=== PATIENT | female | born 1995 | race Caucasian/White ===

== ENCOUNTER 2021-01-30 18:09 | Outpatient (REF) | payer OTHER, SELFPAY | END 2021-01-30 18:10 | disposition home or self-care (01) | LOC: LBN 18:09 | PROVIDERS: Visit Provider Nurse Practitioner Family | DX: N39.0 Urinary tract infection, site not specified (principal) | CPT/HCPCS: 87077; 87086; 87186 ==

== ENCOUNTER 2022-09-11 11:49 | Outpatient (REF) | payer OTHER, SELFPAY ==
--- NOTE | 2022-09-11 08:20 | PAPFT_PTH ---
PATIENT: Junior Agee LOC: [facility] U#:[id number] AGE/SX: 26/F ROOM: RE09/11/[address]: Stephanie Robison : 1995 BED: DIS: 09/11/2022 SPEC #: [id number] RECD: 09/11/22 17:47 STATUS: JIMMY RERomie #: [id number] RACHEAL: 09/11/22 08:[address]: Stephanie Robison DEPT: [facility] Cytology RECD BY: Yessica Lan Tissues: 1 - CX/ENDOCX FOR PAP SMEARS Procedures: PAP THIN PREP/UVM Screening Comments: [id number] (CHLAMYDIA/GC)
[2022-09-11 15:25] LABS: HGB 13.9 g/dL (11.2-15.7); MCH 30.2 pg (27.0-33.0); MCHC 33.1 % (32.0-36.0); MCV 91 fL (80-95); MPV 10.4 fL (8.0-11.0); Platelet Count 248 10^3/uL (130-400); RBC 4.61 10^6/uL (3.93-5.22); RDW 11.4 % (11.7-14.6); RDW-SD 38.2 fL; WBC 5.21 10^3/uL (4.4-10.8)
[2022-09-11 16:02] LABS: Anion Gap 5.6 mmol/L (3-11); BUN 14 mg/dL (7-18); CO2 28.4 mmol/L (21.0-32.0); CREATININE 0.9 mg/dL (0.55-1.02); Calcium 9.3 mg/dL (8.5-10.1); Chloride 105 mmol/L (98-107); Glucose 93 mg/dL (74-106); Potassium 4.6 mmol/L (3.5-5.1); Sodium 139 mmol/L (136-145); TSH (W/Ref FT4) 1.83 uIU/mL (0.36-3.74)
[2022-09-14 14:44] LABS: Chlamydia Result Negative (Negative); GC Result Negative (Negative)
== END 2022-09-11 11:50 | disposition home or self-care (01) ==
LOC: NCHCN 11:49
PROVIDERS: PCP Family Medicine; Visit Provider Family Medicine
DX: Z13.29 Encounter for screening for other suspected endocrine disorder (principal); Z13.228 Encounter for screening for other metabolic disorders; Z12.4 Encounter for screening for malignant neoplasm of cervix; Z11.3 Encounter for screening for infections with a predominantly sexual mode of transmission
CPT/HCPCS: 80048; 85027; 87491; 87591; 88142; 84443

== ENCOUNTER 2022-10-30 18:13 | Outpatient (REF) | payer OTHER, SELFPAY ==
[2022-10-30 14:49] LABS: Abs Immature Grans 0.02 10^3/uL (0.0-0.06); Absolute Basophil Count 0.06 10^3/uL (0.0-0.2); Absolute Eosinophil Count 0.19 10^3/uL (0.0-0.7); Absolute Lymphocyte Count 1.66 10^3/uL (1.2-3.4); Absolute Monocyte Count 0.39 10^3/uL (0.1-0.8); Absolute Neutrophil Count 3.15 10^3/uL (1.2-6.7); Basophils % 1.1; Eosinophils % 3.5; HCT 43.3 % (36.0-46.0); HGB 14.2 g/dL (11.2-15.7); Immature Grans % 0.4; Lymphocytes % 30.3; MCHC 32.8 % (32.0-36.0); MCV 91 fL (80-95); MPV 10.2 fL (8.0-11.0); Monocytes % 7.1; Neutrophils % 57.6; Platelet Count 269 10^3/uL (130-400); RBC 4.74 10^6/uL (3.93-5.22); RDW 11.8 % (11.7-14.6); RDW-SD 39.6 fL; WBC 5.47 10^3/uL (4.4-10.8)
[2022-11-02 10:22] LABS: EBNA IgG Positive (Negative); EBV Interpretation (See Note); VCA IgG Positive (Negative); VCA IgM Negative (Negative)
== END 2022-10-30 18:14 | disposition home or self-care (01) ==
LOC: NCHCN 18:13
PROVIDERS: PCP Family Medicine; Visit Provider Family Medicine
DX: J02.9 Acute pharyngitis, unspecified (principal); R53.83 Other fatigue
CPT/HCPCS: 85025; 86664; 86665

== ENCOUNTER 2023-01-12 18:18 | Outpatient (REF) | payer OTHER, SELFPAY ==
[2023-01-13 17:56] LABS: Progesterone 11.3 ng/mL (See Table)
[2023-01-13 18:53] LABS: Prolactin 32.1 ng/mL (See Note)
[2023-01-13 19:01] LABS: LH 11.8 mIU/mL (See Note)
[2023-01-15 09:39] LABS: Antimullerian Hormone 0.64 ng/mL (0.89-9.9)
[2023-01-17 11:53] LABS: Testosterone, Total 26 ng/dL (8-60)
== END 2023-01-12 18:19 | disposition home or self-care (01) ==
LOC: NCHCN 18:18
PROVIDERS: PCP Family Medicine; Visit Provider Family Medicine
DX: Z31.41 Encounter for fertility testing (principal)
CPT/HCPCS: 84403; 83002; 83520; 84144; 84146

== ENCOUNTER 2023-01-20 09:28 | Outpatient (REF) | payer OTHER, SELFPAY ==
[2023-01-21 19:45] LABS: LH 5.4 mIU/mL (See Note); Progesterone 0.3 ng/mL (See Table); Prolactin 11.8 ng/mL (See Note)
[2023-01-23 22:09] LABS: Estradiol 73 pg/mL (See Note)
[2023-01-25 08:59] LABS: FSH 10.3 mIU/mL (See Note)
[2023-01-26 15:44] LABS: Testosterone, Total 33 ng/dL (8-60)
== END 2023-01-20 09:29 | disposition home or self-care (01) ==
LOC: NCHCN 09:28
PROVIDERS: PCP Family Medicine; Visit Provider Family Medicine
DX: Z31.41 Encounter for fertility testing (principal)
CPT/HCPCS: 84403; 82670; 83001; 83002; 83520; 84144; 84146

== ENCOUNTER 2023-03-23 16:03 | Outpatient (REF) | payer OTHER, SELFPAY ==
[2023-03-23 22:25] LABS: Bilirubin Negative (Negative); Blood Trace-intact (Negative); Clarity Clear (Clear); Glucose Negative (Negative); Ketones Negative (Negative); Leukocyte Esterase Small (Negative); Nitrite Positive (Negative); Urobilinogen 0.2 mg/dL (Up to 0.2)
[2023-03-23 22:47] LABS: Bacteria Few HPF (Negative); Crystals Negative HPF (Negative); Epithelial Cells Rare HPF (Negative); RBC 0-2 HPF (0-2)
[2023-03-23 22:48] LABS: C & S Indicated? Yes; Mucus Negative (Negative)
== END 2023-03-23 16:04 | disposition home or self-care (01) ==
LOC: LBN 16:03
PROVIDERS: PCP Family Medicine; Visit Provider Physician Assistant
DX: N39.0 Urinary tract infection, site not specified (principal)
CPT/HCPCS: 81003; 81015; 87086

== ENCOUNTER 2023-05-05 14:07 | Outpatient (CLI) | payer OTHER, SELFPAY ==
[2023-05-05 15:16] LABS: Abs Immature Grans 0.02 10^3/uL (0.0-0.06); Absolute Basophil Count 0.05 10^3/uL (0.0-0.2); Absolute Eosinophil Count 0.27 10^3/uL (0.0-0.7); Absolute Lymphocyte Count 2.15 10^3/uL (1.2-3.4); Absolute Monocyte Count 0.53 10^3/uL (0.1-0.8); Absolute Neutrophil Count 4.14 10^3/uL (1.2-6.7); Basophils % 0.7; Eosinophils % 3.8; HCT 40.4 % (36.0-46.0); HGB 13.5 g/dL (11.2-15.7); Immature Grans % 0.3; MCH 29.8 pg (27.0-33.0); MCHC 33.4 % (32.0-36.0); MCV 89 fL (80-95); MPV 9.9 fL (8.0-11.0); Monocytes % 7.4; Neutrophils % 57.8; Platelet Count 259 10^3/uL (130-400); RBC 4.53 10^6/uL (3.93-5.22); RDW 12.4 % (11.7-14.6); RDW-SD 40.8 fL; WBC 7.16 10^3/uL (4.4-10.8)
[2023-05-05 17:24] LABS: Vitamin D 25 Total 72.3 ng/mL (30-100)
[2023-05-05 22:26] LABS: LH 3.9 mIU/mL (See Note)
[2023-05-05 22:32] LABS: Progesterone 18.5 ng/mL (See Table)
[2023-05-06 09:16] LABS: Hepatitis B Surface Ag Negative (Negative)
[2023-05-06 10:27] LABS: Syphilis Serology (RPR) Negative (Negative)
[2023-05-06 10:31] LABS: Measles IgG Antibody Positive (See Note); Varicella IgG Antibody Positive (See Note)
[2023-05-06 10:32] LABS: Rubella IgG Ab (UVM) Positive (See Note)
[2023-05-06 12:56] LABS: Chlamydia Result Negative (Negative); GC Result Negative (Negative)
== END 2023-05-05 14:08 | disposition home or self-care (01) ==
LOC: LBO 14:07
PROVIDERS: PCP Family Medicine; Visit Provider Obstetrics & Gynecology
DX: Z31.41 Encounter for fertility testing (principal); Z31.69 Encounter for other general counseling and advice on procreation; Z11.59 Encounter for screening for other viral diseases; Z01.84 Encounter for antibody response examination
CPT/HCPCS: 36415; 82306; 86706; 86787; 86803; 86850; 86900; 86901; 87340; 87389; 87491; 87591; 82670; 83001; 83002; 84144; 85025; 86592; 86762; 86765

== ENCOUNTER 2023-05-14 11:50 | Outpatient (CLI) | payer OTHER, SELFPAY ==
[2023-05-14 20:15] LABS: Estradiol 43 pg/mL (See Note)
[2023-05-14 20:34] LABS: FSH 15.5 mIU/mL (See Note)
== END 2023-05-14 11:51 | disposition home or self-care (01) ==
LOC: LBO 11:50
PROVIDERS: PCP Family Medicine; Visit Provider Obstetrics & Gynecology
DX: N83.8 Other noninflammatory disorders of ovary, fallopian tube and broad ligament (principal)
CPT/HCPCS: 36415; 82670; 83001

== ENCOUNTER 2023-06-02 15:28 | Outpatient (REF) | payer OTHER, SELFPAY | END 2023-06-02 15:29 | disposition home or self-care (01) | LOC: NCHCN 15:28 | PROVIDERS: PCP Family Medicine; Visit Provider Family Medicine | DX: R30.0 Dysuria (principal) | CPT/HCPCS: 87086 ==

== ENCOUNTER 2023-07-08 02:32 | Outpatient (CLI) | payer OTHER, SELFPAY ==
[2023-07-15 03:39] LABS: Specimen WB Whole Blood
[2023-07-19 16:03] LABS: Result Summary NEGATIVE; Specimen WB Whole Blood
[2023-07-29 15:40] LABS: Result Summary NEGATIVE; Specimen WB Whole Blood
== END 2023-07-08 02:33 | disposition home or self-care (01) ==
PROVIDERS: PCP Family Medicine; Visit Provider Family Medicine
DX: Z31.41 Encounter for fertility testing (principal)
CPT/HCPCS: 36415; 81220; 81222; 81329; 81243; 83891; 83892; 83894; 83896; 83897; 83898

== ENCOUNTER 2023-07-21 12:32 | Outpatient (REF) | payer OTHER, SELFPAY ==
[2023-07-21 14:38] LABS: Bilirubin Negative (Negative); Blood Negative (Negative); Clarity Clear (Clear); Glucose Negative (Negative); Ketones Negative (Negative); Leukocyte Esterase Trace (Negative); Nitrite Negative (Negative); Specific Gravity <= 1.005 (1.005-1.025); Urobilinogen 0.2 mg/dL (Up to 0.2)
[2023-07-21 14:49] LABS: Bacteria Few HPF (Negative); C & S Indicated? C&S Done As Ordered; Casts Negative LPF (Negative); Crystals Negative HPF (Negative); Epithelial Cells Few HPF (Negative); Mucus Negative (Negative); RBC 0-2 HPF (0-2)
== END 2023-07-21 12:33 | disposition home or self-care (01) ==
LOC: NCHCN 12:32
PROVIDERS: PCP Family Medicine; Visit Provider Family Medicine
DX: Z33.1 Pregnant state, incidental (principal)
CPT/HCPCS: 81003; 81015; 87086

== ENCOUNTER 2023-07-27 03:29 | Outpatient (CLI) | payer OTHER, SELFPAY ==
[2023-07-27 16:01] LABS: Abs Immature Grans 0.05 10^3/uL (0.0-0.06); Absolute Basophil Count 0.04 10^3/uL (0.0-0.2); Absolute Eosinophil Count 0.27 10^3/uL (0.0-0.7); Absolute Lymphocyte Count 2.11 10^3/uL (1.2-3.4); Absolute Monocyte Count 0.75 10^3/uL (0.1-0.8); Absolute Neutrophil Count 7.55 10^3/uL (1.2-6.7); Basophils % 0.4; Eosinophils % 2.5; HCT 37.3 % (36.0-46.0); HGB 12.7 g/dL (11.2-15.7); Immature Grans % 0.5; Lymphocytes % 19.6; MCH 30.2 pg (27.0-33.0); MCV 89 fL (80-95); MPV 9.8 fL (8.0-11.0); Platelet Count 231 10^3/uL (130-400); RDW 11.7 % (11.7-14.6); RDW-SD 37.3 fL; WBC 10.77 10^3/uL (4.4-10.8)
[2023-07-27 16:03] LABS: Bilirubin Negative (Negative); Blood Negative (Negative); Clarity Clear (Clear); Glucose Negative (Negative); Ketones Negative (Negative); Leukocyte Esterase Negative (Negative); Nitrite Negative (Negative); Urobilinogen 0.2 mg/dL (Up to 0.2)
[2023-07-29 10:03] LABS: HIV-1/2 Ag & Ab Screen Negative (Negative)
[2023-07-29 10:15] LABS: Hepatitis C Ab w Rflx HCV PCR Negative (Negative)
== END 2023-07-27 03:30 | disposition home or self-care (01) ==
LOC: LBO 03:30
PROVIDERS: PCP Family Medicine; Visit Provider Family Medicine
DX: Z33.1 Pregnant state, incidental (principal)
CPT/HCPCS: 36415; 86803; 86850; 86900; 86901; 87389; 81003; 85025; 87086

== ENCOUNTER 2023-09-09 03:20 | Outpatient (CLI) | payer OTHER, SELFPAY ==
[2023-09-09 15:04] LABS: Panorama Kit Sent via Fed Ex
== END 2023-09-09 03:21 | disposition home or self-care (01) ==
LOC: LBO 03:20
PROVIDERS: PCP Family Medicine; Visit Provider Advanced Practice Midwife
DX: Z34.91 Encounter for supervision of normal pregnancy, unspecified, first trimester (principal)
CPT/HCPCS: 36415

== ENCOUNTER 2023-09-09 14:59 | Outpatient (REF) | payer OTHER, SELFPAY ==
[2023-09-09 19:00] LABS: *AMPHETAMINES SCREEN URINE Negative (Negative); *BARBITURATES SCREEN URINE Negative (Negative); *BENZODIAZEPINES SCREEN URINE Negative (Negative); Cannabinoids THC Negative (Negative); Cocaine Screen,Urine Negative (Negative); METHADONE URINE SCREEN Negative (Negative); OPIATES URINE SCREEN Negative (Negative)
[2023-09-09 19:01] LABS: Tricyclic Antidepressants Negative (Negative)
[2023-09-16 08:05] LABS: Buprenorphine Negative ng/mL (Cutoff: 5.0); Norbuprenorphine Negative ng/mL (Cutoff: 2.5)
== END 2023-09-09 15:00 | disposition home or self-care (01) ==
LOC: LBN 14:59
PROVIDERS: PCP Family Medicine; Visit Provider Advanced Practice Midwife
DX: Z34.91 Encounter for supervision of normal pregnancy, unspecified, first trimester (principal)
CPT/HCPCS: 80307; 80348; 87086

== ENCOUNTER 2023-11-23 17:04 | Outpatient (REF) | payer OTHER, SELFPAY ==
[2023-11-23 20:30] LABS: Bilirubin Negative (Negative); Blood Trace-lysed (Negative); Clarity Clear (Clear); Glucose Negative (Negative); Ketones Negative (Negative); Leukocyte Esterase Small (Negative); Nitrite Negative (Negative); Urobilinogen 0.2 mg/dL (Up to 0.2)
[2023-11-23 20:36] LABS: Bacteria Few HPF (Negative); C & S Indicated? Yes; Crystals Negative HPF (Negative); Epithelial Cells Rare HPF (Negative); Mucus Negative (Negative); RBC 0-2 HPF (0-2)
== END 2023-11-23 17:05 | disposition home or self-care (01) ==
LOC: LBN 17:04
PROVIDERS: PCP Family Medicine; Visit Provider Nurse Practitioner Family
DX: R35.0 Frequency of micturition (principal); R30.0 Dysuria; N39.0 Urinary tract infection, site not specified; Z33.1 Pregnant state, incidental
CPT/HCPCS: 87077; 81003; 81015; 87086; 87186

== ENCOUNTER 2023-12-04 10:23 | Outpatient (CLI) | payer OTHER, SELFPAY | END 2023-12-04 11:05 | disposition home or self-care (01) | PROVIDERS: PCP Family Medicine; Visit Provider Family Medicine | DX: N39.0 Urinary tract infection, site not specified (principal); B96.29 Other Escherichia coli [E. coli] as the cause of diseases classified elsewhere; R39.89 Other symptoms and signs involving the genitourinary system | CPT/HCPCS: 87077; 87086; 87186 ==

== ENCOUNTER 2024-01-05 18:44 | Outpatient (CLI) | payer OTHER, SELFPAY ==
[2024-01-05 19:23] VITALS: BP 114/64; PULSE 81
[2024-01-05 20:13] VITALS: BP 118/67; PULSE 85
[2024-01-05 20:14] LABS: Abs Immature Grans 0.18 10^3/uL (0.0-0.06); Absolute Eosinophil Count 0.31 10^3/uL (0.0-0.7); Absolute Lymphocyte Count 1.91 10^3/uL (1.2-3.4); Absolute Monocyte Count 0.96 10^3/uL (0.1-0.8); Basophils % 0.6 %; Eosinophils % 2.2 %; HCT 36.4 % (36.0-46.0); HGB 12.1 g/dL (11.2-15.7); Immature Grans % 1.3 %; Lymphocytes % 13.5 %; MCH 31.1 pg (27.0-33.0); MCHC 33.2 % (32.0-36.0); MCV 94 fL (80-95); MPV 10.5 fL (8.0-11.0); Monocytes % 6.8 %; Neutrophils % 75.6 %; Platelet Count 182 10^3/uL (130-400); RBC 3.89 10^6/uL (3.93-5.22); RDW 13.1 % (11.7-14.6); RDW-SD 44.7 fL; WBC 14.15 10^3/uL (4.4-10.8)
[2024-01-05] MEDS: Lactated Ringers 1,000 ML 1000 ML IV (20:15)
[2024-01-05 20:16] LABS: Absolute Basophil Count 0.08 10^3/uL (0.0-0.2)
[2024-01-05 21:12] VITALS: BP 123/63; PULSE 80
[2024-01-05] MEDS: Betamet Acet/Betamet Na Ph Inj. 30 MG/5 ML 12 MG IM (21:25)
[2024-01-05] MEDS: MAGNESIUM SULFATE 4 GM/100 ML BAG 300 GM (21:30)
--- NOTE | 2024-01-05 21:30 | W.PM.OBHPL1 ---
Date of service: 01/05/24 Time of Service: 21:31 OB-HPI Labor/Delivery History of Present Illness Reason for Visit: NST Chief Complaint: Vaginal Bleeding , Associated Signs and Symptoms of Vaginal Bleeding: as in text box. 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 clots, kirit blood/bright red persists - two 50 cc clots here at [facility] - estimate ~250 cc total - Good FMVT, cat 1 NST - mod variability No trauma, falls, recent intercourse, cocaine/meth/nocotine use. PN care - low/pprevia 20 weeks - two successive scans show placenta moved to now 3.0 cm from int os cervix 4.3 cm long on last sono 12/21/2023 O: sterile spec - 50 cc clot at OS/fornix - cervix closed - membranes vs mucous plug noted No abd pain, FH ~30 cm no pedal edema POCUS - transverse vigorous vasquez cardiac activity noted SHASHI ~10 cm post placenta - difficult to assess abnormalities A: painless bleeding - uterine source - likely placental Maternal and wellbeing Given risk for Pre-term labor/delivery [place] [facility] [place] Mag load for neuroprotection Celestone dose given IM P: support with IV fluids, Mag enroute to . Report called, EMTALA forms done CAlex and BC RN to accompany Records copied/faxed to [facility]. [facility] History of Present Expected Delivery Route/Plan - CNM FOB/ - Darian Saldivar (first child) Informed choice to formula feed Specific Issues/Plan 1. Spontaneous conception despite hx POI 2. CF/SMA carrier screen negative, cfDNA low risk x5 PFSH All Active Problems Primary ovarian insufficiency (Acute) (Acute) Delayed menses (Acute) Social History Smoking risk assessment performed?: No History History 1 Para 0 Hx # Term Pregnancies 0 Multiple births 0 Hx # Pregnancies 0 Ectopic pregnancies 0 AB induced 0 Hx Number of Living Children 0 AB spontaneous 0 Meds Allergies and Home Medications Allergies Allergy/AdvReac Type Severity Reaction Status Date / Time No Known Allergies Allergy Verified 11/23/23 16:32 Home Medications Medication Instructions Recorded Confirmed Type cholecalciferol (vitamin D3) 50 50 mcg PO DAILY 02/18/22 09/09/23 History mcg (2,000 unit) capsule prenat.vits,omid,uhw-ylfu-jjwds 1 tab PO DAILY 05/26/22 09/09/23 History Exam Physical Exam Vital signs: Pulse BP 80 123/63 01/05/24 21:12 01/05/24 21:12 Detailed Labor and Delivery Exam Vinson Score: Cervical Points Exam 0 1 2 3 Dilation Closed 1-2cm 3-4 cm 5-6cm Effacement 0-30% 40-50% 60-70% 80% Consistency Firm Medium Soft Station -3 -2 -1,0 +1,+2 Position Posterior Mid Anterior Results Abnormal Lab Findings: Abnormal Labs 01/05/24 20:05 WBC 14.15 H RBC 3.89 L Absolute Neutrophils 10.70 H Absolute Monocytes 0.96 H Risk Assessment Risk for Shoulder Dystocia Historical/Initial OB: NEGATIVE FOR: Pelvic Abnormality, Pre- BMI>30, Previous Shoulder Dystocia or Previous Macrosomia Risk for Pre-Eclampsia Date Initiated/Initials: not indicated JK Yes, if one or more: NEGATIVE FOR: Hx Pre-E/Gest HTN, Chronic HTN, Multiple Gestation, Pre-gestational DM, Renal Disease, Systemic Lupus or APA Syndrome Yes, if 2 or more: POSITIVE FOR: Nulliparity; NEGATIVE FOR: Age>= 35 yrs, >10yr btwn pregnancies, BMI>30, ethinicty, Mother/Sister w/ Pre-E or Previous IUGR Risk for Post- Hemorrhage Initial: NEGATIVE FOR: Multiple Gestation, Previous PPH, Known Clotting Deficiency, Grand Multiparity or Anticoagulation Risks Reviewed Risks Reviewed Upon Admission: Yes
[2024-01-05] MEDS: MAGNESIUM SULFATE 20 GM/500 ML BAG IV (22:08)
--- NOTE | 2024-01-05 22:44 | W.PM.OBDISCH ---
Date of service: 01/05/24 Time of Service: 22:44 DS: Diagnosis Discharge Diagnosis (1) Vaginal bleeding during : Status: Acute Asessment and Plan: transferred to for Vag bleeding, prematurity. Maternal and wellbeing on d/c. Mag IV and celestone IM given. RN accompanying IRENE Murillo Discharge Plan Disposition Patient Disposition: Transfer-Acute Inpatient Care Specific Acute Inpt Facility: [facility] Discharge Details Reason For Visit: NST Attending Provider: Roberto Murillo Primary Care Provider: Stephanie Robison Home Meds and New Rx's Prescriptions: No Action cholecalciferol (vitamin D3) 50 mcg (2,000 unit) capsule 50 mcg PO DAILY prenat.vits,omid,euu-ondd-xdswc Tablet 1 tab PO DAILY Discharge Data Discharge Date/Time-TO BE ENTERED AT DEPARTURE: 01/05/24 22:11 OB:DS Summary Contraception Discussed Contraception Discussed: No, Status at Discharge Functional status at discharge: independent ambulation Overall status at discharge: patient is back to baseline Mental Status: mental status grossly normal Speech and Movement: speech and movement normal Mood: congruent mood Affect: normal affect Quality:SDOH Health Related Social Needs: No Data to Display Exam Physical Exam Vital signs: Pulse BP 80 123/63 01/05/24 21:12 01/05/24 21:12 PFSH All Active Problems (Updated 01/05/24 @ 22:45 by Roberto Murillo) Vaginal bleeding during (Acute) Primary ovarian insufficiency (Acute) (Acute) Delayed menses (Acute) Social History Smoking risk assessment performed?: No History History 1 Para 0 Hx # Term Pregnancies 0 Multiple births 0 Hx # Pregnancies 0 Ectopic pregnancies 0 AB induced 0 Hx Number of Living Children 0 AB spontaneous 0 DS: Data Vitals/I&O Vitals and I&O: Vital Signs Pulse 80 01/05/24 21:12 Blood Pressure 123/63 01/05/24 21:12 Data Completed and Pending Labs on day of discharge: Labs from last 24 hours 01/05/24 20:05 WBC 14.15 H RBC 3.89 L Hgb 12.1 Hct 36.4 MCV 94 MCH 31.1 MCHC 33.2 RDW 13.1 Plt Count 182 MPV 10.5 Immature Gran % 1.3 Neutrophils % 75.6 Lymphocytes % 13.5 Monocytes % 6.8 Eosinophils % 2.2 Basophils % 0.6 Nucleated RBC % 0.0 Absolute Neutrophils 10.70 H Absolute Lymphocytes 1.91 Absolute Monocytes 0.96 H Absolute Eosinophils 0.31 Absolute Basophils 0.08
--- NOTE | 2024-01-06 00:56 | NUR.NOTE ---
Summary note for care delivered while patient on unit and during transfer; 01/05/24 1915 through 01/06/24 8782. Pt presented c/o passing BRB and clots at home, without pain. Had changed peripad downstairs so placed on EFM for NST. Had pt get up to BR [id number] to assess for bleeding. Passed a half dollar sized amount of BRB onto floor when trying to check pad. Dr. Murillo paged. He responded and said he would come into to see pt. I returned to room to see pt and inform her that he would be in. Her peripad was 3/4 saturated with BRB and a small clot, the hat in the toilet had 400 cc of bloody colored urine with a flat softball sized clot in it. Dr Murillo immediately repaged to request an IV and lab work orders. (See orders) Electrical Research Engineer aware of pt status. See Dr. Murillos note and MAR for additional documentation. During transport pt's vitals signs changed slightly in that her pulse increased by 10-15 BPM and her blood pressure decreased systolic by 10mmhg. This was reported to [facility]LA[facility] Anderson upon arrival. FHR remained between 140 and 145 throughout transport. Upon arrival it was 160, unable to ascertain if this was a baseline change or an acceleration. This was also reported to [facility] Anderson.
== END 2024-01-05 22:11 | disposition short-term general hospital (02) ==
LOC: BCD 18:49 → OBS 19:19
PROVIDERS: PCP Family Medicine; Visit Provider Family Medicine
DX: O46.90 Antepartum hemorrhage, unspecified, unspecified trimester (principal); Z3A.29 29 weeks gestation of pregnancy
CPT/HCPCS: 00123; 76856; 76857; 96360; 96361; 59025; 85025; J0702; J3475

== ENCOUNTER 2024-01-14 15:45 | Outpatient (REF) | payer OTHER, SELFPAY ==
[2024-01-15 11:14] LABS: Campylobacter PCR Negative (Negative); Salmonella PCR Negative (Negative); Shiga Toxin PCR Negative (Negative); Shigella/Enteroinvasive Ecoli Negative (Negative)
== END 2024-01-14 15:46 | disposition home or self-care (01) ==
LOC: NCHCN 15:45
PROVIDERS: PCP Family Medicine; Visit Provider Family Medicine
DX: R19.7 Diarrhea, unspecified (principal)
CPT/HCPCS: 87329; 87505

== ENCOUNTER 2024-03-14 00:14 | Emergency (ER) | payer OTHER, SELFPAY ==
[2024-03-14 00:16] VITALS: BP 126/73; PULSE 97; RESP 16; TEMP 36.6; O2SAT 98
--- NOTE | 2024-03-14 00:16 | ED.GENADUL_ITS ---
Discharge Plan Disposition Patient Disposition: Home Condition: Good Discharge Details Clinical Impression: Pyelonephritis of left kidney Primary Care Provider: Stephanie Robison ED Provider: Dany Avilez Meds and New Rx's Prescriptions: New cefpodoxime 200 mg tablet 200 mg PO BID Qty: 14 0RF Rx Instructions: must administer with a meal/food Continued cholecalciferol (vitamin D3) 50 mcg (2,000 unit) capsule 50 mcg PO DAILY prenat.vits,omid,lae-wsfo-iiisf Tablet 1 tab PO DAILY Discharge Instructions Instructions: Urinary Tract Infection, Adult ED Additional Instructions: You were seen for urinary symptoms and left back pain. You do have evidence of UTI on your urinalysis. Given the back pain likely have a kidney infection also called pyelonephritis. You received IV antibiotics here. You will need to take 1 week worth of oral antibiotics with first dose occurring this evening. Stay hydrated. You may use acetaminophen or ibuprofen for discomfort or fever. Follow-up with primary care next week. Return to ED for severe worsening pain, persistent vomiting, spiking fevers, other concerns. HPI General Mode of arrival: ambulatory . Date/Time Provider Initiated Documentation: 03/14/24 00:16 . Limitations to Documentation: no limitations . Information obtained by: patient and RN notes reviewed . HPI Narrative: Patient presents to ED with worsening left-sided flank and back pain. She has had urinary symptoms since Wednesday and has been using Azo and drinking cranberry juice. Tonight she has developed low back and flank pain and continues to have dysuria, pressure. She denies any fever. She denies any nausea vomiting. She has had UTIs in the past typically not causing back or flank pain. Describes the pain as a dull ache and discomfort. There is no sharp stabbing pain. She has no history of kidney stones. Denies , had emergency back in December. Related Data Home Medications ?Medication ?Instructions ?Recorded ?Confirmed cholecalciferol (vitamin D3) 50 50 mcg PO DAILY 02/18/22 03/14/24 mcg (2,000 unit) capsule prenat.vits,omid,jti-evbi-sqvsd 1 tab PO DAILY 05/26/22 03/14/24 cefpodoxime 200 mg tablet 200 mg PO BID #14 tabs 03/14/24 Previous Rx's ?Medication ?Instructions ?Recorded cefpodoxime 200 mg tablet 200 mg PO BID #14 tabs 03/14/24 Allergies Allergy/AdvReac Type Severity Reaction Status Date / Time No Known Allergies Allergy Verified 03/14/24 00:23 Review of Systems Narrative: Per HPI Exam Narrative Exam Narrative: Const: WDWN female in NAD. VS per triage. HEENT: NC/AT. Normal facial exam. Neck: Supple. Trachea midline. Lungs: Normal respiratory effort. GI: Soft/ND/NT. Back: No CVAT. Neuro: A+O x 3. Normal speech, mentation, gait. Cranial nerves II - XII grossly intact. No gross motor or sensory deficit. Ext: No C/C/E. Medical Decision Making Patient presenting to ED with urinary symptoms and now left-sided back and flank pain. Describes it as a dull ache. She has not significantly uncomfortable, denies any sharp stabbing pain, denies any previous history of kidney stones. Abdomen is benign. She has no CVAT. She looks well otherwise. Will place IV and check CBC, BMP. Will obtain urinalysis and urine test. Will give fluids, ketorolac, dose of IV antibiotic assuming urine does appear infected. 01:00 - Patient's urine test is negative. Urinalysis consistent with infection, no hematuria. Kidney function is normal. White count is mildly elevated. Will treat as pyelonephritis/complicated UTI. She is given a dose of IV ceftriaxone here. Will be discharged home on cefpodoxime. Follow-up with primary care next week. Return precautions provided. Lab Data Lab results reviewed: Yes I reviewed the patient's lab results. Lab results narrative: see [facility] All Active Problems (Updated 03/14/24 @ 01:00 by Dany Avilez MD) Pyelonephritis of left kidney (Acute) Primary ovarian insufficiency (Acute) Medical History No significant past medical history Surgical History History of section Social History Smoking risk assessment performed?: No History History 1 Para 0 Hx # Term Pregnancies 0 Multiple births 0 Hx # Pregnancies 0 Ectopic pregnancies 0 AB induced 0 Hx Number of Living Children 0 AB spontaneous 0
[2024-03-14] MEDS: Lactated Ringers 1,000 ML 1000 ML IV (00:37)
[2024-03-14] MEDS: Ketorolac 15 MG/ML VIAL IVP (00:37)
[2024-03-14 00:39] LABS: Clarity Clear (Clear); Specific Gravity < 1.005 (1.005-1.025)
[2024-03-14 00:46] LABS: Anion Gap 9.4 mmol/L (3-11); BUN 12 mg/dL (7-18); CO2 25.6 mmol/L (21.0-32.0); Chloride 107 mmol/L (98-107); Estimated GFR 77.72 (mL/min/1.73m2); Glucose 94 mg/dL (74-106); Sodium 142 mmol/L (136-145)
[2024-03-14 00:48] LABS: Bacteria Negative HPF (Negative); C & S Indicated? Yes; Crystals Negative HPF (Negative); Epithelial Cells Rare HPF (Negative); Mucus Negative (Negative); RBC 0-2 HPF (0-2); WBC >50 HPF (0-5)
[2024-03-14 00:50] LABS: Abs Immature Grans 0.05 10^3/uL (0.0-0.06); Absolute Basophil Count 0.05 10^3/uL (0.0-0.2); Absolute Eosinophil Count 0.26 10^3/uL (0.0-0.7); Absolute Lymphocyte Count 2.21 10^3/uL (1.2-3.4); Basophils % 0.4 %; Eosinophils % 2.1 %; HCT 43.4 % (36.0-46.0); HGB 14.3 g/dL (11.2-15.7); Immature Grans % 0.4 %; Lymphocytes % 17.6 %; MCH 29.3 pg (27.0-33.0); MCHC 32.9 % (32.0-36.0); MCV 89 fL (80-95); MPV 10.2 fL (8.0-11.0); Monocytes % 7.2 %; Neutrophils % 72.3 %; Platelet Count 263 10^3/uL (130-400); RBC 4.88 10^6/uL (3.93-5.22); RDW 12.3 % (11.7-14.6); RDW-SD 40.4 fL; WBC 12.55 10^3/uL (4.4-10.8)
[2024-03-14 00:53] LABS: Absolute Neutrophil Count 9.07 10^3/uL (1.2-6.7)
[2024-03-14] MEDS: cefTRIAXone 1 GM/50 ML BAG IVPB (01:01)
== END 2024-03-14 01:19 | disposition home or self-care (01) ==
PROVIDERS: Emergency Provider Emergency Medicine; PCP Family Medicine
DX: N10 Acute pyelonephritis (principal); B96.20 Unspecified Escherichia coli [E. coli] as the cause of diseases classified elsewhere
CPT/HCPCS: 80048; 87077; 96365; 96375; 99284; 81003; 81015; 85025; 87086; 87186; 99283; J0696; J1885

== ENCOUNTER 2024-06-17 16:56 | Outpatient (REF) | payer OTHER, SELFPAY | END 2024-06-17 16:57 | disposition home or self-care (01) | LOC: LBN 16:56 | PROVIDERS: PCP Family Medicine; Visit Provider Nurse Practitioner Family | DX: N30.00 Acute cystitis without hematuria (principal) | CPT/HCPCS: 87086 ==

== ENCOUNTER 2024-08-11 21:49 | Outpatient (REF) | payer OTHER, SELFPAY ==
[2024-08-11 22:07] LABS: Bacteria Negative HPF (Negative); C & S Indicated? C&S Done As Ordered; Crystals Negative HPF (Negative); Epithelial Cells Rare HPF (Negative); Mucus Negative (Negative); RBC Negative HPF (0-2); WBC Negative HPF (0-5)
== END 2024-08-11 21:50 | disposition home or self-care (01) ==
LOC: LBN 21:49
PROVIDERS: PCP Family Medicine; Visit Provider Physician Assistant Medical
DX: N89.8 Other specified noninflammatory disorders of vagina (principal); R10.30 Lower abdominal pain, unspecified
CPT/HCPCS: 81015; 87086; 87480; 87510; 87660

== ENCOUNTER 2024-08-17 15:59 | Outpatient (REF) | payer OTHER, SELFPAY ==
[2024-08-17 14:44] LABS: Abs Immature Grans 0.02 10^3/uL (0.0-0.06); Absolute Basophil Count 0.05 10^3/uL (0.0-0.2); Absolute Eosinophil Count 0.17 10^3/uL (0.0-0.7); Absolute Lymphocyte Count 1.83 10^3/uL (1.2-3.4); Absolute Monocyte Count 0.46 10^3/uL (0.1-0.8); Absolute Neutrophil Count 4.38 10^3/uL (1.2-6.7); Basophils % 0.7 %; Eosinophils % 2.5 %; HCT 42.6 % (36.0-46.0); HGB 14.2 g/dL (11.2-15.7); Immature Grans % 0.3 %; Lymphocytes % 26.5 %; MCHC 33.3 % (32.0-36.0); MCV 90 fL (80-95); Monocytes % 6.7 %; Neutrophils % 63.3 %; Platelet Count 285 10^3/uL (130-400); RBC 4.73 10^6/uL (3.93-5.22); RDW 11.6 % (11.7-14.6); RDW-SD 38.3 fL; WBC 6.91 10^3/uL (4.4-10.8)
[2024-08-17 15:12] LABS: ALT 43 U/L (14-59); AST 24 U/L (15-37); Albumin 3.9 g/dL (3.4-5.0); Alkaline Phosphatase 95 U/L (46-116); Anion Gap 9.6 mmol/L (3-11); BUN 11 mg/dL (7-18); Bilirubin, Total 0.39 mg/dL (0.2-1.0); CO2 27.4 mmol/L (21.0-32.0); CREATININE 0.9 mg/dL (0.55-1.02); Calcium 9.1 mg/dL (8.5-10.1); Chloride 107 mmol/L (98-107); Glucose 82 mg/dL (74-106); Potassium 4.2 mmol/L (3.5-5.1); Sodium 144 mmol/L (136-145); Total Protein 7.2 g/dL (6.4-8.2)
== END 2024-08-17 16:00 | disposition home or self-care (01) ==
LOC: NCHCN 15:59
PROVIDERS: PCP Family Medicine; Visit Provider Family Medicine
DX: R53.83 Other fatigue (principal)
CPT/HCPCS: 80053; 84443; 85025

== ENCOUNTER 2024-09-08 22:13 | Outpatient (REF) | payer OTHER, SELFPAY ==
[2024-09-08 22:00] LABS: Bilirubin Negative (Negative); Blood Moderate (Negative); Clarity Clear (Clear); Glucose Negative (Negative); Ketones Negative (Negative); Leukocyte Esterase Negative (Negative); Nitrite Negative (Negative); Specific Gravity <= 1.005 (1.005-1.025); Urobilinogen 0.2 mg/dL (Up to 0.2)
[2024-09-08 22:19] LABS: Bacteria Rare HPF (Negative); Casts Negative LPF (Negative); Crystals Negative HPF (Negative); Epithelial Cells Rare HPF (Negative); Mucus Negative (Negative); RBC 0-2 HPF (0-2); WBC 0-2 HPF (0-5)
[2024-09-08 22:20] LABS: C & S Indicated? C&S Done As Ordered
== END 2024-09-08 22:14 | disposition home or self-care (01) ==
LOC: LBN 22:13
PROVIDERS: PCP Family Medicine; Visit Provider Physician Assistant
DX: N39.0 Urinary tract infection, site not specified (principal); R82.89 Other abnormal findings on cytological and histological examination of urine
CPT/HCPCS: 81003; 81015; 87086

== ENCOUNTER 2024-09-09 17:53 | Emergency (ER) | payer OTHER, SELFPAY ==
[2024-09-09 17:55] VITALS: BP 137/84; PULSE 125; RESP 18; TEMP 37.9; O2SAT 96
[2024-09-09 18:04] VITALS: BP 137/84; PULSE 125; RESP 18; TEMP 37.9; O2SAT 96
[2024-09-09 18:21] LABS: Bilirubin Negative (Negative); Blood Trace-lysed (Negative); Clarity Clear (Clear); Glucose Negative (Negative); Ketones Negative (Negative); Leukocyte Esterase Trace (Negative); Nitrite Positive (Negative); Urobilinogen 0.2 mg/dL (Up to 0.2); pH 6.5 (5-8)
--- NOTE | 2024-09-09 18:23 | ED.GENADUL_ITS ---
Discharge Plan Disposition Patient Disposition: Home Discharge Details Clinical Impression: Pyelonephritis Primary Care Provider: Stephanie Robison ED Provider: Saurabh Phillip Home Meds and New Rx's Prescriptions: New cefpodoxime 200 mg tablet 200 mg PO BID 10 Days Qty: 20 0RF Rx Instructions: must administer with a meal/food Continued ParaGard T 380A 380 square mm intrauterine device 1 device intrauterine ONCE Rx Instructions: as a single dose cholecalciferol (vitamin D3) 50 mcg (2,000 unit) capsule 50 mcg PO DAILY Discontinued nitrofurantoin monohyd/m-cryst [Macrobid] 100 mg capsule 100 mg PO Q12H 5 Days Qty: 10 0RF Rx Instructions: must administer with a meal/food phenazopyridine [Pyridium] 200 mg tablet 200 mg PO TID PRN (Reason: pain) Qty: 6 0RF nitrofurantoin monohyd/m-cryst [Macrobid] 100 mg capsule 100 mg PO Q12H Rx Instructions: must administer with a meal/food Discharge Instructions Instructions: Urinary Tract Infection, Adult ED Additional Instructions: Return immediately to the emergency department for any new or significant worsening of symptoms. This may include uncontrollable vomiting, high fevers, worsening pain or other concerns. Otherwise please follow-up with primary care provider next week for reassessment and to ensure that you are improving Referrals: Stephanie Robison [Primary Care Provider] - 3 days HPI General Mode of arrival: ambulatory . Date/Time Provider Initiated Documentation: 09/09/24 17:54 . Limitations to Documentation: no limitations . Information obtained by: patient and RN notes reviewed . History of Present Illness 28 year old F presents to the emergency department with the chief complaint of Fever, flank pain, recent diagnosis of UTI, described as moderate and similar to prior episodes, and is localized to the back. Patient reports no radiation. Patient started experiencing this day(s) (2) and it has been constant. No relieving factors improve symptom(s), No exacerbating factors reported . Patient notes malaise. Patient did receive the following treatments prior to arrival, other (Macrobid) Related Data Home Medications ?Medication ?Instructions ?Recorded ?Confirmed cholecalciferol (vitamin D3) 50 50 mcg PO DAILY 02/18/22 09/09/24 mcg (2,000 unit) capsule copper 380 square mm intrauterine 1 device intrauterine ONCE 09/08/24 09/09/24 device (ParaGard T 380A) cefpodoxime 200 mg tablet 200 mg PO BID 10 days #20 tabs 09/09/24 Previous Rx's ?Medication ?Instructions ?Recorded cefpodoxime 200 mg tablet 200 mg PO BID 10 days #20 tabs 09/09/24 Allergies Allergy/AdvReac Type Severity Reaction Status Date / Time No Known Allergies Allergy Verified 09/09/24 17:59 General Stated Complaint: FlankPain ALEXA: 3 Review of Systems Constitutional Constitutional: Reports chills, Reports fever(s) and Reports malaise Cardiovascular Cardiovascular: Denies chest pain Respiratory Respiratory: Denies cough Gastrointestinal Gastrointestinal: Denies abdominal pain, Denies nausea and Denies vomiting Genitourinary Genitourinary: Reports as per HPI, Denies dysuria, Reports pelvic pain, Reports flank pain and Denies vaginal discharge Integumentary/Breasts Skin/Breast: Denies rash Exam Const General: cooperative and no acute distress Orientation: alert, awake and oriented x3 Resp Effort & Inspection: normal respiratory effort and able to speak in complete sentences Auscultation: clear to auscultation bilaterally Cardio Rate: regular rate Rhythm: regular rhythm Heart Sounds: S1 normal and S2 normal GI Palpation: nontender General: CVA tenderness on the right Back/Spine/Pelvis Back: CVA tenderness Neuro General: patient alert, patient awake and patient oriented x3 Extrem General: capillary refill normal Course Vital Signs Vital signs: Vital Signs Temperature 37.9 C H 09/09/24 17:55 Pulse 125 H 09/09/24 17:55 Respiratory Rate 18 09/09/24 17:55 Blood Pressure 137/84 09/09/24 17:55 Pulse Oximetry 96 09/09/24 17:55 Temperature 37.9 C H 09/09/24 18:04 Temperature Source Tympanic 09/09/24 18:04 Pulse 125 H 09/09/24 18:04 Respiratory Rate 18 09/09/24 18:04 Blood Pressure 137/84 09/09/24 18:04 Blood Pressure Position Sitting 09/09/24 18:04 Pulse Oximetry 96 09/09/24 18:04 Oxygen Delivery Method Room Air 09/09/24 18:04 Oxygen Flow Rate 0 09/09/24 18:04 Pain Level 2 01/11/25 18:04 Medical Decision Making Pt here for flank pain, fever chills suprapubic discomfort . Symptoms for 2 days. denies abd pain, nausea, diarrhea, or vaginal discharge or rash. Exam shows, tachycardia , mild right CVA tenderness, mild supra-pubic tenderness, otherwise neg exam and pt is non toxic in apperance. ddx to include acute cyctitis/UTI, Pyelonephritis, doubt infected kidney stone Will plan on checking urinalysis, labs, and given tachycardia with fever of 37. 9 will give patient fluid bolus, ketorolac, and 1 g of Rocephin Results and findings consistent with pyelonephritis but I do not feel that there are any emergent need for admission and given that patient is not vomiting I do feel that outpatient therapy is appropriate. Encourage patient to stop previous antibiotics and monitor symptoms along with returning for any new or significant worsening of symptoms after discussion of diagnosis and plan of care patient has no further needs, questions, or concerns and states clear understanding to return to the emergency department for any worsening symptoms.. This documentation was generated using [employer]ation system, please disregard any oddities of phrase or misspellings. Medical Records Medical records reviewed: Yes I reviewed the patient's medical records. Lab Data Lab results reviewed: Yes I reviewed the patient's lab results. Quality:SDOH Health Related Social Needs: No Data to Display PFSH All Active Problems (Updated 09/09/24 @ 19:32 by Saurabh Phillip NP) Pyelonephritis (Acute) Primary ovarian insufficiency (Acute) Medical History No significant past medical history Surgical History History of section Social History Smoking/Tobacco Use Status: Never Smoking risk assessment performed?: Yes Alcohol Intake: never Drug use: Never Substance use type: does not use Do you feel safe at home: Yes Do you feel safe in your relationship?: Yes History History 1 Para 0 Hx # Term Pregnancies 0 Multiple births 0 Hx # Pregnancies 0 Ectopic pregnancies 0 AB induced 0 Hx Number of Living Children 0 AB spontaneous 0
[2024-09-09 18:29] LABS: Bacteria Rare HPF (Negative); C & S Indicated? No/Sq. Contamination; Casts Negative LPF (Negative); Crystals Negative HPF (Negative); Epithelial Cells Many HPF (Negative); Mucus Negative (Negative); RBC 0-2 HPF (0-2)
[2024-09-09] MEDS: cefTRIAXone 1 GM/50 ML BAG 100 GM (19:01)
[2024-09-09] MEDS: Normal Saline 1,000 ML 1000 ML IV (19:01)
[2024-09-09 19:07] LABS: Abs Immature Grans 0.07 10^3/uL (0.0-0.06); Absolute Basophil Count 0.03 10^3/uL (0.0-0.2); Absolute Eosinophil Count 0.26 10^3/uL (0.0-0.7); Absolute Lymphocyte Count 0.57 10^3/uL (1.2-3.4); Absolute Monocyte Count 0.65 10^3/uL (0.1-0.8); Basophils % 0.2 %; Eosinophils % 1.9 %; HGB 13.6 g/dL (11.2-15.7); Immature Grans % 0.5 %; Lymphocytes % 4.2 %; MCH 29.9 pg (27.0-33.0); MCHC 33.2 % (32.0-36.0); MCV 90 fL (80-95); MPV 9.8 fL (8.0-11.0); Monocytes % 4.8 %; Neutrophils % 88.4 %; Platelet Count 224 10^3/uL (130-400); RBC 4.55 10^6/uL (3.93-5.22); RDW 11.6 % (11.7-14.6); WBC 13.57 10^3/uL (4.4-10.8)
[2024-09-09 19:27] LABS: ALT 28 U/L (14-59); AST 20 U/L (15-37); Albumin 3.7 g/dL (3.4-5.0); Alkaline Phosphatase 90 U/L (46-116); BUN 12 mg/dL (7-18); CREATININE 0.8 mg/dL (0.55-1.02); Chloride 103 mmol/L (98-107); Estimated GFR 101.59 (mL/min/1.73m2); Glucose 93 mg/dL (74-106); Potassium 3.9 mmol/L (3.5-5.1); Sodium 139 mmol/L (136-145); Total Protein 7.2 g/dL (6.4-8.2)
--- NOTE | 2024-09-10 12:13 | NUR.NOTE ---
Nursing Note: Pt called and stated that she went to the pharmacy to seed cone picker her antibiotic that was prescribed yesterday but the pharmacy reported that they never received the medication. I called them to confirm and then gave them a verbal per the directions on the discharge papers. Once I was done with giving a verbal to Kirit Atkinson, I called the patient back and notified her that I called in her prescription; however, asked that she wait at least an hour before going to the pharmacy to allow for them to get the medication together.
== END 2024-09-09 19:57 | disposition home or self-care (01) ==
PROVIDERS: Emergency Provider Nurse Practitioner Family; PCP Family Medicine
DX: N12 Tubulo-interstitial nephritis, not specified as acute or chronic; R10.9 Unspecified abdominal pain
CPT/HCPCS: 36415; 80053; 81025; 96360; 96372; 99284; 81003; 81015; 85025; 99283; J0696; J2003

== ENCOUNTER 2024-09-11 18:06 | Emergency (ER) | payer OTHER, SELFPAY ==
[2024-09-11 18:07] VITALS: BP 136/83; PULSE 101; RESP 12; TEMP 36.4; O2SAT 96
[2024-09-11 18:22] LABS: Bilirubin Negative (Negative); Blood Negative (Negative); Clarity Clear (Clear); Glucose Negative (Negative); Ketones 15 mg/dL (Negative); Leukocyte Esterase Negative (Negative); Nitrite Negative (Negative); Specific Gravity <= 1.005 (1.005-1.025); Urobilinogen 0.2 mg/dL (Up to 0.2); pH 5.5 (5-8)
--- NOTE | 2024-09-11 18:30 | DI.CT_ITS ---
Exam(s) CT ABDOMEN PELVIS WO EXAM: CT ABDOMEN PELVIS WO CLINICAL HISTORY: left flank pain, recurrent uti. TECHNIQUE: Imaging Protocol: Axial computed tomography images with coronal and sagittal reformatted images were created and reviewed. Oral:/ no COMPARISON: No exams were available for comparison FINDINGS: Lung Bases: No acute findings. Liver: Normal density. No suspicious mass. Gallbladder and biliary tract: No radiodense calculus or biliary dilation. Pancreas: Normal density. No abnormal calcifications or inflammatory process. Spleen: Normal. Kidneys: Normal size, contour and axis. No radiodense stones. No obstructive uropathy. No suspicious masses seen. Adrenal glands: No masses seen. Lymph nodes: Within normal limits. Vasculature: Abdominal aorta non-dilated. Soft tissues: This air in section scar. Bladder: Slight wall thickening. No mass or calculi. Bowel: No obstruction or bowel wall thickening. Peritoneal cavity: No ascites. No focal collection. No mesenteric inflammatory response. Reproductive organs: Retroverted uterus with IUD. Bones: Unremarkable for age. IMPRESSION: Slight bladder wall thickening could indicate cystitis. The kidneys are unremarkable. RADIATION DOSE DELIVERED: 401.34mGy.cm Total DLP DATA REPOSITORY: All CT scans at this facility are submitted to the National Radiology Data Registry (NRDR) Dose Index Registry (DIR) with the [employer] (A[employer]). RADIATION OPTIMIZATION: All CT scans at this facility use at least one of these dose optimization te chniques: automated exposure control; mA and/or kV adjustment per patient size (includes targeted exa ms where dose is matched to clinical indication); or iterative reconstruction.
[2024-09-11] MEDS: Ondansetron O.D.T. 4 MG TABEF, 3 TABS/BTL PO (20:50)
[2024-09-11 21:04] VITALS: BP 90/60; PULSE 90; RESP 16; TEMP 36.7; O2SAT 99
--- NOTE | 2024-09-11 21:10 | DI.VRAD_ITS ---
PROCEDURE INFORMATION: Exam: CT Abdomen And Pelvis Without Contrast Exam date and time: 09/11/2024 7:55 PM Age: 28 years old Clinical indication: Patient HX: L flank pain, recurrent utis TECHNIQUE: Imaging protocol: Computed tomography of the abdomen and pelvis without contrast. Radiation optimization: All CT scans at this facility use at least one of these dose optimization techniques: automated exposure control; mA and/or kV adjustment per patient size (includes targeted exams where dose is matched to clinical indication); or iterative reconstruction. COMPARISON: US OB CERVICAL LENGTH 12/21/2023 3:11 PM FINDINGS: Lungs: Linear bibasilar opacities most consistent with subsegmental atelectasis. Liver: The liver is unremarkable. Gallbladder and biliary ducts: No gallstones. Nondistended. No wall thickening. Pancreas: The pancreas is unremarkable. Spleen: No splenomegaly. No lesions. Adrenal glands: The adrenal glands are unremarkable. Kidneys and ureters: The kidneys are normal. Stomach and bowel: No evidence of bowel obstruction. No pericolonic inflammatory stranding. Appendix: Normal appendix. Intraperitoneal space: Unremarkable. No free air. No significant fluid collection. Vasculature: Patent vessels without evidence of aneurysm, dissection, occlusion or critical stenosis. Lymph nodes: No mesentery adenopathy. No edema. Urinary bladder: There is diffuse bladder wall thickening, this may be secondary to incomplete distension, however, cystitis can have a similar appearance. Correlate clinically. Reproductive: Retroverted uterus with IUD. Bones/joints: No acute osseous abnormality. Soft tissues: Soft tissues are unremarkable as visualized. IMPRESSION: There is diffuse bladder wall thickening, this may be secondary to incomplete distension, however, cystitis can have a similar appearance. Correlate clinically. Dictated and Authenticated by: Yin Rodrigues MD. Ordering:ROSAS Juan MD
--- NOTE | 2024-09-11 22:23 | ED.GENADUL_ITS ---
Discharge Plan Disposition Patient Disposition: Home Condition: Stable Discharge Details Clinical Impression: Acute flank pain Primary Care Provider: Stephanie Robison ED Provider: Yessica Gan Home Meds and New Rx's Prescriptions: Continued ParaGard T 380A 380 square mm intrauterine device 1 device intrauterine ONCE Rx Instructions: as a single dose cholecalciferol (vitamin D3) 50 mcg (2,000 unit) capsule 50 mcg PO DAILY cefpodoxime 200 mg tablet 200 mg PO BID 10 Days Qty: 20 0RF Rx Instructions: must administer with a meal/food Discharge Instructions Instructions: Abdominal Pain, Adult ED Additional Instructions: take motrin and tylenol as needed for pain zofran as needed for nausea please check your portal read about your CT abd/pelvis as the results have not returned please return earlier should you have new or worsening complaints continue on your antibiotics Referrals: Stephanie Robison [Primary Care Provider] - Discharge Data Discharge Date/Time-TO BE ENTERED AT DEPARTURE: 09/11/24 21:04 HPI General Date/Time Provider Initiated Documentation: 09/11/24 18:08 . HPI Narrative: 28-year-old female otherwise healthy presenting with persistent back pain despite taking cefpodoxime for urinary tract infection. She is concerned there might be something more serious occurring. She is status post delivery in December 2023 has not had any complications since that time. Denies any chance of and had a negative test 2 days prior to arrival. Patient also reports she has an IUD. Patient has intermittent nausea without vomiting predominantly when she takes the cefpodoxime. She denies any rashes or lesions. She denies known exacerbating relieving factors. She does have a history of back pain in the past. Denies any vaginal bleeding Related Data Home Medications ?Medication ?Instructions ?Recorded ?Confirmed cholecalciferol (vitamin D3) 50 50 mcg PO DAILY 02/18/22 09/11/24 mcg (2,000 unit) capsule copper 380 square mm intrauterine 1 device intrauterine ONCE 09/08/24 09/11/24 device (ParaGard T 380A) cefpodoxime 200 mg tablet 200 mg PO BID 10 days #20 tabs 09/09/24 09/11/24 Previous Rx's ?Medication ?Instructions ?Recorded cefpodoxime 200 mg tablet 200 mg PO BID 10 days #20 tabs 09/09/24 Allergies Allergy/AdvReac Type Severity Reaction Status Date / Time No Known Allergies Allergy Verified 09/11/24 18:12 General Stated Complaint: FlankPain ALEXA: 3 Exam Narrative Exam Narrative: 28-year-old female in no acute distress, no CVA tenderness, no abdominal tenderness, afebrile and nontoxic in appearance Course Vital Signs Vital signs: Vital Signs Temperature 36.4 C L 09/11/24 18:07 Pulse 101 H 09/11/24 18:07 Respiratory Rate 12 09/11/24 18:07 Blood Pressure 136/83 09/11/24 18:07 Pulse Oximetry 96 09/11/24 18:07 Temperature 36.7 C 09/11/24 21:04 Temperature Source Oral 09/11/24 18:07 Pulse 90 09/11/24 21:04 Respiratory Rate 16 09/11/24 21:04 Blood Pressure 90/60 L 09/11/24 21:04 Blood Pressure Position Sitting 09/11/24 18:07 Pulse Oximetry 99 09/11/24 21:04 Oxygen Delivery Method Room Air 09/11/24 18:07 Oxygen Flow Rate 0 09/11/24 18:07 Pain Level 0 09/11/24 21:04 Lab/Test Results Lab/Test Results: Laboratory Tests Range/Units 09/11/24 18:10 Urine Color (Yellow) Yellow Urine Clarity (Clear) Clear Urine pH (5-8) 5.5 Ur Specific [place] (1.005-1.025) <= 1.005 Urine Protein (Neg-Trace) mg/dL Negative Urine Ketones (Negative) mg/dL 15 H Urine Blood (Negative) Negative Urine Nitrite (Negative) Negative Urine Bilirubin (Negative) Negative Urine Urobilinogen (Up to 0.2) mg/dL 0.2 Ur Leukocyte Esterase (Negative) Negative Urine Glucose (Negative) mg/dL Negative Medical Decision Making 28-year-old female presenting in no acute distress being treated for a urinary tract infection. Given persistent symptoms I did order CT abdomen and pelvis although urinalysis did not show evidence of acute abnormality per radiology interpretation and my review. POC -2 days prior to arrival, no indication for recheck at this time. Patient had CBC and CMP at her last visit all of which were within normal limits aside from mild leukocytosis, no indication to repeat labs. Patient encouraged to follow-up with primary care physician in 2 to 3 days and continue taking her antibiotic as prescribed. It looks like after reviewing the micro for urinalysis the patient is on appropriate therapy. Quality:SDOH Health Related Social Needs: No Data to Display PFSH All Active Problems (Updated 09/11/24 @ 20:37 by DENTON Lee) Acute flank pain (Acute) Pyelonephritis (Acute) Primary ovarian insufficiency (Acute) Medical History No significant past medical history Surgical History History of section Social History Smoking/Tobacco Use Status: Never Smoking risk assessment performed?: Yes Alcohol Intake: never Drug use: Never Substance use type: does not use Housing: house Do you feel safe at home: Yes Do you feel safe in your relationship?: Yes History History 1 Para 0 Hx # Term Pregnancies 0 Multiple births 0 Hx # Pregnancies 0 Ectopic pregnancies 0 AB induced 0 Hx Number of Living Children 0 AB spontaneous 0
== END 2024-09-11 21:04 | disposition home or self-care (01) ==
PROVIDERS: Student in an Organized Health Care Education/Training Program; Emergency Provider Physician Assistant; PCP Family Medicine
DX: R10.9 Unspecified abdominal pain (principal); R11.0 Nausea
CPT/HCPCS: 99284; 74176; 81003; 99283

== ENCOUNTER 2024-12-10 08:56 | Emergency (ER) | payer OTHER, SELFPAY ==
[2024-12-10 09:00] VITALS: BP 132/66; PULSE 88; RESP 20; TEMP 36.4; O2SAT 98
--- NOTE | 2024-12-10 09:13 | ED.GENADUL_ITS ---
Discharge Plan Disposition Patient Disposition: Home Condition: Stable Discharge Details Clinical Impression: Sinusitis, Conjunctivitis Primary Care Provider: Stephanie Robison ED Provider: Nicolas Rose Home Meds and New Rx's Prescriptions: New amoxicillin-pot clavulanate 875-125 mg tablet 1 tab PO BID Qty: 20 0RF erythromycin 5 mg/gram (0.5 %) ointment 0.5 inch ophthalmic (eye) BID 7 Days Qty: 3.5 0RF Continued ParaGard T 380A 380 square mm intrauterine device 1 device intrauterine ONCE Rx Instructions: as a single dose cholecalciferol (vitamin D3) 50 mcg (2,000 unit) capsule 50 mcg PO DAILY Discharge Instructions Additional Instructions: If not improving within a week follow-up with your primary care provider. You can take 1000 mg of acetaminophen and 600 mg of ibuprofen every 6 hours as needed. If you feel more ill or have new symptoms such as persistent vomiting return to the emergency department for reevaluation. HPI General Mode of arrival: ambulatory . Date/Time Provider Initiated Documentation: 12/10/24 08:57 . Limitations to Documentation: no limitations . Information obtained by: patient . History of Present Illness 29 year old F presents to the emergency department with the chief complaint of sinus pressure, cough, crusting of eyes/bloodshot eyes, Patient started experiencing this week(s) (2) and it has been constant. No relieving factors improve symptom(s), No exacerbating factors reported . Patient notes denies fever/chills, nausea/vomiting and shortness of breath. Patient did receive the following treatments prior to arrival, none Related Data Home Medications ?Medication ?Instructions ?Recorded ?Confirmed cholecalciferol (vitamin D3) 50 50 mcg PO DAILY 02/18/22 12/10/24 mcg (2,000 unit) capsule copper 380 square mm intrauterine 1 device intrauterine ONCE 09/08/24 12/10/24 device (ParaGard T 380A) amoxicillin 875 mg-potassium 1 tab PO BID #20 tabs 12/10/24 clavulanate 125 mg tablet erythromycin 5 mg/gram (0.5 %) eye 0.5 inch ophthalmic (eye) BID 7 12/10/24 ointment days #3.5 grams Previous Rx's ?Medication ?Instructions ?Recorded amoxicillin 875 mg-potassium 1 tab PO BID #20 tabs 12/10/24 clavulanate 125 mg tablet erythromycin 5 mg/gram (0.5 %) eye 0.5 inch ophthalmic (eye) BID 7 12/10/24 ointment days #3.5 grams Allergies Allergy/AdvReac Type Severity Reaction Status Date / Time No Known Allergies Allergy Verified 12/10/24 09:02 General Stated Complaint: RespSymp ALEXA: 4 Review of Systems All systems reviewed & are unremarkable except as noted in HPI and below Constitutional Constitutional: Denies chills, Denies fever(s) and Denies weakness Eyes Eyes: Reports eye discharge and Denies loss of vision ENT Ears, Nose, Mouth, and Throat: Denies change in voice and Reports sinus pain Cardiovascular Cardiovascular: Denies chest pain and Denies dyspnea Respiratory Respiratory: Reports cough and Denies dyspnea Gastrointestinal Gastrointestinal: Denies abdominal pain, Denies nausea and Denies vomiting Neurologic Neurologic: Denies loss of vision and Denies weakness Psychiatric Psychiatric: Denies depression Exam Const General: no acute distress Orientation: alert HENMT Head: normal to inspection Ears: external ears normal General nose exam: external nose normal Mouth: moist mucous membranes Throat: posterior oropharynx normal and uvula midline Eyes General: appearance normal, both eyes and all related structures Periorbital: periorbital findings normal Eyelids: eyelids normal Conjunctivae: abnormal conjunctivae Pupils: PERRL EOM: EOM intact bilaterally Neck Neck: normal visual inspection Resp Effort & Inspection: normal respiratory effort and able to speak in complete sentences Auscultation: clear to auscultation bilaterally Cardio Rate: regular rate Skin General skin exam: no rashes or lesions noted Neuro General: patient alert and patient oriented x3 Extrem General: normal to inspection Psych Mental Status: mental status grossly normal Course Vital Signs Vital signs: Vital Signs Temperature 36.4 C 12/10/24 09:00 Pulse 88 12/10/24 09:00 Respiratory Rate 20 12/10/24 09:00 Blood Pressure 132/66 12/10/24 09:00 Pulse Oximetry 98 12/10/24 09:00 Temperature 36.4 C 12/10/24 09:00 Temperature Source Tympanic 12/10/24 09:00 Pulse 88 12/10/24 09:00 Respiratory Rate 20 12/10/24 09:00 Respiratory Effort Normal, Non-Labored 12/10/24 09:03 Respiratory Depth Normal 12/10/24 09:03 Blood Pressure 132/66 12/10/24 09:00 Blood Pressure Position Sitting 12/10/24 09:00 Pulse Oximetry 98 12/10/24 09:00 Oxygen Delivery Method Room Air 12/10/24 09:00 Oxygen Flow Rate 0 12/10/24 09:00 Pain Level 0 12/10/24 09:00 Medical Decision Making 29-year-old female comes in with 2 weeks of sinus pressure, cough and general fatigue. She says this morning her eyes were red and had crusting when she woke up so she came in for evaluation. She denies any high fevers, denies smoking or drug use. She is speaking full sentences on exam, she has erythema of the conjunctiva bilaterally, there is no periorbital swelling, there is no deep eye pain or discomfort, pupils are equal and reactive to light. Posterior pharynx is normal with midline uvula, no restricted neck movements or pain over the hyoid. She has clear lung sounds, no JVD, no leg swelling. I suspect sinusitis and given length of time of symptoms I will start her on Augmentin and also provide erythromycin for conjunctivitis. Advised to follow-up with her PCP if not improving within a week and return precautions given Quality:SDOH Health Related Social Needs: No Data to Display PFSH All Active Problems (Updated 12/10/24 @ 09:14 by Nicolas Rose MD) Conjunctivitis (Acute) Sinusitis (Acute) Lower urinary tract symptoms (LUTS) (Acute) Primary ovarian insufficiency (Acute) Medical History (Updated 12/10/24 @ 09:14 by Nicolas Rose MD) History of recurrent urinary tract infection No significant past medical history Surgical History History of section Social History Smoking/Tobacco Use Status: Never Smoking risk assessment performed?: Yes Alcohol Intake: never Drug use: Never Substance use type: does not use Housing: house Do you feel safe at home: Yes Do you feel safe in your relationship?: Yes History History 1 Para 0 Hx # Term Pregnancies 0 Multiple births 0 Hx # Pregnancies 0 Ectopic pregnancies 0 AB induced 0 Hx Number of Living Children 0 AB spontaneous 0
== END 2024-12-10 09:19 | disposition home or self-care (01) ==
PROVIDERS: Emergency Provider Emergency Medicine; PCP Family Medicine
DX: J01.90 Acute sinusitis, unspecified (principal); H10.33 Unspecified acute conjunctivitis, bilateral
CPT/HCPCS: 99283

== ENCOUNTER 2025-06-13 17:10 | Outpatient (REF) | payer OTHER, SELFPAY ==
[2025-06-13 19:53] LABS: Glucose Negative (Negative)
[2025-06-13 19:57] LABS: WBC 20-50 HPF (0-5)
== END 2025-06-13 17:11 | disposition home or self-care (01) ==
LOC: LBN 17:10
PROVIDERS: Urology; PCP Family Medicine; Visit Provider Family Medicine
DX: R39.9 Unspecified symptoms and signs involving the genitourinary system (principal); R10.9 Unspecified abdominal pain
CPT/HCPCS: 87077; 81003; 81015; 87086; 87186

== ENCOUNTER 2025-06-26 00:54 | Outpatient (CLI) | payer OTHER, SELFPAY ==
--- NOTE | 2025-06-26 | DI.US_ITS ---
Exam(s) US BREAST RT COMPLETE MG MAMMO DIAGNOSTIC BI EXAM: MG MAMMO DIAGNOSTIC BI AND COMPLETE RIGHT BREAST ULTRASOUND CLINICAL HISTORY: TENDER LUMP 10 OCLCOCK 2 CM FROM NIPPLE RT BREAST,INTERMITTENTLY,N63.11. TECHNIQUE: BILATERAL CC AND MLO mammographic images were obtained with 3D tomosynthesis technique and utilizing computer aided detection (CAD). Also performed spot compression view of the upper outer quadrant COMPLETE RIGHT BREAST ULTRASOUND was performed including all 4 quadrants as well as the axillary region. COMPARISON: This is a diagnostic baseline study on this 29-year-old patient who feels a lump at the 9-10 o'clock position of the right breast which previously was the size of a ping-pong ball and has now significantly decreased in size. FINDINGS: DIAGNOSTIC MAMMOGRAM: The fibroglandular tissue pattern is moderately dense. There are no spiculated masses nor malignant-appearing microcalcification groups in either breast. Additional spot compression view of the area of concern in the right breast did not reveal obvious findings. There is no architectural distortion or skin thickening-traction. We proceeded with ultrasound. COMPLETE RIGHT BREAST ULTRASOUND: There is a solitary finding in the right breast which corresponds to her palpable area of concern. This is a 4 x 3 mm benign microcyst at the 9 o'clock position. There are no solid lesions at this location or elsewhere in all 4 quadrants of the right breast. Scanning of the right axilla is negative for significant adenopathy. IMPRESSION: 1. There is a small 4 x 3 mm benign microcyst at the 9 o'clock position of the right breast which corresponds to her palpable finding. Apparently this is significantly smaller according to the patient and it was a few months ago Appropriate follow-up is repeat ultrasound exam if this finding becomes larger in size. The patient was informed of the findings and follow-up recommendations by myself prior to leaving the department today. BI-RADS Category 2 - Benign Findings Breast Density - Category C - The breast are heterogeneously dense, which may obscure small masses. Breast density Category C or D implies that the patient has dense breast tissue. Dense breast tissue can make it harder to find cancer on a mammogram. Dense breast tissue is also associated with an increased risk of breast cancer. This information about the result of the mammogram report was provided to the patient to raise their awareness. Use this report when you speak with the patient about their risks for breast cancer, which includes their family history. At that time, you may recommend additional screening tests (Ultrasound or MRI) as these tests may add significant information. A negative radiographic report should not delay biopsy if a dominant or clinically suspicious mass is present. Up to ten percent of cancers are not identified on mammography. A negative report may reinforce clinical impression. Adenosis and dense breasts may obscure an underlying neoplasm. False positive reports average 6 to 10%. Patient will receive a letter notifying them of these results.
== END 2025-06-26 01:14 ==
LOC: DI 00:54
PROVIDERS: PCP Family Medicine; Visit Provider Family Medicine
DX: N63.11 Unspecified lump in the right breast, upper outer quadrant (principal)
CPT/HCPCS: 76642; 77062; 77066; G0279

== ENCOUNTER 2025-08-14 09:14 | Outpatient (REF) | payer OTHER, SELFPAY ==
--- NOTE | 2025-08-14 07:50 | PAPFT_PTH ---
PATIENT: Junior Agee LOC: [facility]#:[id number] AGE/SX: 29/F ROOM: RE08/14/[address]: Stephanie Robison : 1995 BED: DIS: 08/14/2025 SPEC #: [id number] RECD: 08/14/25 18:23 STATUS: JIMMY CALLOWAY #: [id number] RACHEAL: 08/14/25 07:[address]: Stephanie Robison [facility] Cytology RECD BY: Yessica Lan Tissues: 1 - CX/ENDOCX FOR PAP SMEARS Procedures: PAP THIN PREP/UVM Screening HPV DNA PROBE Comments: [id number] (HPV 16 & 18/45)
[2025-08-14 14:18] LABS: HCT 40.3 % (36.0-46.0); HGB 13.4 g/dL (11.2-15.7); MCH 29.8 pg (27.0-33.0); MCHC 33.3 % (32.0-36.0); MCV 90 fL (80-95); MPV 10.1 fL (8.0-11.0); Platelet Count 273 10^3/uL (130-400); RBC 4.49 10^6/uL (3.93-5.22); RDW 12.0 % (11.7-14.6); RDW-SD 39.7 fL; WBC 7.95 10^3/uL (4.4-10.8)
[2025-08-14 16:14] LABS: TSH (W/Ref FT4) 1.74 uIU/mL (0.55-4.78)
[2025-08-14 16:23] LABS: Anion Gap 10.2 mmol/L (3-11); BUN 12 mg/dL (9-23); CO2 25.8 mmol/L (20.0-31.0); Calcium 9.2 mg/dL (8.3-10.6); Chloride 108 mmol/L (98-107); Cholesterol 159 mg/dL (<200); Glucose 87 mg/dL (74-106); HDL Cholesterol 67 mg/dL (>40); Magnesium 2.0 mg/dL (1.6-2.6); Potassium 4.3 mmol/L (3.5-5.1); Sodium 144 mmol/L (136-145)
[2025-08-14 16:59] LABS: Vitamin B12 344 pg/mL (211-911)
== END 2025-08-14 09:15 | disposition home or self-care (01) ==
LOC: NCHCN 09:14
PROVIDERS: PCP Family Medicine; Visit Provider Family Medicine
DX: R20.2 Paresthesia of skin (principal); Z13.220 Encounter for screening for lipoid disorders; N92.0 Excessive and frequent menstruation with regular cycle; Z12.4 Encounter for screening for malignant neoplasm of cervix
CPT/HCPCS: 80048; 80061; 85027; 88142; 82607; 83735; 84443; 87624

== ENCOUNTER 2025-08-15 08:52 | Emergency (ER) | payer OTHER, SELFPAY ==
[2025-08-15] VITALS (9 sets, daily range): BP systolic 104–129; BP diastolic 54–79; PULSE 68–91; RESP 12; TEMP 37; O2SAT 96–97
--- NOTE | 2025-08-15 09:15 | DI.MRI_ITS ---
Exam(s) MR BRAIN WO/W EXAM: MR BRAIN WO/W CLINICAL HISTORY: paresthesias r face, arms, leg. TECHNIQUE: Multiplanar multisequence MRI of the brain was performed. CONTRAST MATERIAL: IV Contrast: 11 ML of Dotarem contrast administered. COMPARISON: No exams were available for comparison FINDINGS: VENTRICLES AND EXTRA AXIAL SPACES: Normal in size and morphology for the patient's age. HEMORRHAGE: None. CEREBRAL PARENCHYMA: No focus of restricted diffusion to suggest acute infarct. No space-occupying lesion identified. No abnormal high signal lesions in the white matter. BRAINSTEM/CEREBELLUM: Normal. CALVARIUM: Normal. ENHANCEMENT: No suspicious enhancement identified. VISUALIZED PARANASAL SINUSES/MASTOIDS: Clear. Orbits: Unremarkable. Pituitary: Not enlarged. Vasculature: Normal flow voids. IMPRESSION: Unremarkable MRI of the brain. DATA REPOSITORY:
--- NOTE | 2025-08-15 09:30 | RT.EKG_ITS ---
APPROVED REPORT Exam: Resting ECG Reason for Exam: paresthesias, presyncope Patient Location: E HR:77 bpm ECG Measurements Heart Rate 77 AXIS MS 126 P 27 QRSd 70 QRS 43 QT 358 T 9 QTc 405 Conclusion Sinus rhythm...normal P axis, V-rate 60- 99 Consider anteroseptal infarct...Q >30mS, dimin R, V1-V2
[2025-08-15 10:25] LABS: Magnesium 2.0 mg/dL (1.6-2.6)
[2025-08-15 10:26] LABS: Anion Gap 8.9 mmol/L (3-11); BUN 11 mg/dL (9-23); CO2 26.1 mmol/L (20.0-31.0); Calcium 9.1 mg/dL (8.3-10.6); Chloride 108 mmol/L (98-107); Glucose 112 mg/dL (74-106); Potassium 4.2 mmol/L (3.5-5.1); Sodium 143 mmol/L (136-145)
[2025-08-15 10:52] LABS: Lab Add On Test DONE
[2025-08-15] MEDS: Normal Saline Flush 10 ML SYR IVP (10:58)
[2025-08-15] MEDS: Gadoterate meglumine 20 ML SYRINGE IJ (10:59)
[2025-08-15 11:07] LABS: Troponin I < 3 ng/L (<35)
--- NOTE | 2025-08-15 13:51 | W.ED.GENAD ---
Discharge Plan Disposition Patient Disposition: Home Condition: Stable Discharge Details Clinical Impression: Paresthesias Primary Care Provider: Stephanie Robison ED Provider: Yessica Gan Home Meds and New Rx's Prescriptions: Continued ParaGard T 380A 380 square mm intrauterine device 1 device intrauterine ONCE Rx Instructions: as a single dose cholecalciferol (vitamin D3) 50 mcg (2,000 unit) capsule 50 mcg PO DAILY Discharge Instructions Instructions: Paresthesia (DC) Additional Instructions: Please follow-up with your primary care physician At their discussion you may benefit from a neurology referral Your tick panel is pending, we will notify you if you have a positive result Your MRI was quite reassuring there is no evidence of tumor or abnormal lesion Your labs are also quite reassuring That should you develop worsening headaches or strength change, please be reassessed immediately Stand Alone Forms: Portal Information Discharge Data Discharge Date/Time-TO BE ENTERED AT DEPARTURE: 08/15/25 12:27 HPI General Date/Time Provider Initiated Documentation: 08/15/25 08:53. HPI Narrative: This 29-year-old female presents with right sided paresthesias that have been intermittent over the course of the past several weeks. She states there is not really been a headache in conjunction with her symptoms nor any visual abnormalities. Denies any history of similar presentation prior to this. Denies known exacerbating or alleviating factors. Was evaluated by her primary care physician and did have blood work performed yesterday which did not show acute abnormality per patient. Related Data Home Medications ?Medication ?Instructions ?Recorded ?Confirmed cholecalciferol (vitamin D3) 50 50 mcg PO DAILY 02/18/22 08/15/25 mcg (2,000 unit) capsule copper 380 square mm intrauterine 1 device intrauterine ONCE 09/08/24 08/15/25 device (ParaGard T 380A) Allergies Allergy/AdvReac Type Severity Reaction Status Date / Time No Known Allergies Allergy Verified 08/15/25 09:08 General Stated Complaint: GenMedical ALEXA: 3 Exam Narrative Exam Narrative: Alert, oriented 29-year-old female in no acute distress, pupils equal round reactive to light and accommodation no carotid bruit no nystagmus lungs clear to auscultation cardiac rate rhythm regular no abdominal tenderness no rashes or lesions aside from small little area of irritation overlying right scapular region no erythema migrans distal pulses intact Eyes EOM: No nystagmus Neuro General: patient alert, patient oriented x3, no focal motor deficits and CN's II-XI intact bilaterally Cranial Nerves: CN's II-XI intact bilaterally, tongue midline and no nystagmus Cognition: normal cognition Gait: normal gait Motor: strength 5/5 throughout and no pronator drift noted Sensory Exam: no sensory deficits noted and lower extremity not examined Course Vital Signs Vital signs: Vital Signs Temperature 37.0 C 08/15/25 09:04 Pulse 91 H 08/15/25 09:04 Respiratory Rate 12 08/15/25 09:04 Blood Pressure 129/67 08/15/25 09:04 Pulse Oximetry 96 08/15/25 09:04 Temperature 37.0 C 08/15/25 09:04 Temperature Source Oral 08/15/25 09:04 Pulse 80 08/15/25 12:11 Respiratory Rate 12 08/15/25 09:04 Respiratory Effort Non-Labored 08/15/25 09:50 Respiratory Depth Normal 08/15/25 09:50 Respiratory Pattern Normal 08/15/25 09:50 Blood Pressure 104/54 L 08/15/25 12:11 Blood Pressure Mean 72 08/15/25 12:11 Blood Pressure Position Sitting 08/15/25 09:04 Pulse Oximetry 97 08/15/25 12:10 Oxygen Delivery Method Room Air 08/15/25 09:04 Oxygen Flow Rate 0 08/15/25 09:04 Lab/Test Results Lab/Test Results: Laboratory Tests Range/Units 08/15/25 08/15/25 09:43 09:43 Sodium (136-145) mmol/L 143 Potassium (3.5-5.1) mmol/L 4.2 Chloride (98-107) mmol/L 108 H Carbon Dioxide (20.0-31.0) mmol/L 26.1 Anion Gap (3-11) mmol/L 8.9 BUN (9-23) mg/dL 11 Creatinine (0.55-1.02) mg/dL 0.84 Est GFR (CKD-EPI 2020) (mL/min/1.73m2) 78.68 Glucose (74-106) mg/dL 112 H Calcium (8.3-10.6) mg/dL 9.1 Magnesium Cancelled 2.0 Troponin I (<35) ng/L < 3 Add-On Test Request DONE Medical Decision Making Results: Reviewed CBC, CMP TSH from yesterday which were negative, pending tick panel, MRI with and without contrast to evaluate for tumor versus MS versus other lesion was negative per radiology interpretation of my review Assessment and plan: Patient otherwise well in appearance, no acute focal neurological abnormalities MRI does not show acute pathology per radiology interpretation my review, at this time I think patient stable for discharge home low suspicion clinically for acute central process, asymptomatic at time of discharge home. Encouraged following up with primary care physician and possible outpatient neurological referral at their discretion. PFSH All Active Problems (Updated 08/15/25 @ 12:11 by DENTON Lee) Paresthesias (Acute) Lower urinary tract symptoms (LUTS) (Acute) Primary ovarian insufficiency (Acute) Medical History (Updated 08/15/25 @ 12:11 by DENTON Lee) History of recurrent urinary tract infection No significant past medical history Surgical History History of section Social History Smoking/Tobacco Use Status: Never Smoking risk assessment performed?: Yes Alcohol Intake: never Drug use: Never Substance use type: does not use Housing: house Do you feel safe at home: Yes Do you feel safe in your relationship?: Yes History History 1 Para 0 Hx # Term Pregnancies 0 Multiple births 0 Hx # Pregnancies 0 Ectopic pregnancies 0 AB induced 0 Hx Number of Living Children 0 AB spontaneous 0
[2025-08-16 11:03] LABS: Lyme Ab w Rflx to Lyme Confirm Negative (Negative)
[2025-08-17 14:17] LABS: B. miyamotoi PCR Negative (Negative); Babesia divergens/MO-1 Negative (Negative); Ehrlichia muris eauclairensis Negative (Negative)
== END 2025-08-15 12:27 | disposition home or self-care (01) ==
PROVIDERS: Emergency Provider Physician Assistant; PCP Family Medicine
DX: R20.2 Paresthesia of skin (principal)
CPT/HCPCS: 36415; 70553; 80048; 87798; 93005; 99284; 83735; 84484; 86618; 93010; 99283